=== PATIENT | female | born 1965 | race Caucasian/White ===

== ENCOUNTER → 2019-07-08 | Outpatient (CLI) | payer BC | LOC: COL.RAD 09:51 | DX: C20 Malignant neoplasm of rectum (principal); E27.8 Other specified disorders of adrenal gland; K80.20 Calculus of gallbladder without cholecystitis without obstruction; M79.89 Other specified soft tissue disorders | CPT/HCPCS: Q9967 ==

== ENCOUNTER 2020-01-04 23:04 | Emergency (ER) | payer BC ==
[~2020-01-04] VITALS: Ht 177.8 cm; Wt 104.5 kg
[2020-01-04 23:07] VITALS: BP 118/75; TEMP 97.6
[2020-01-04] MEDS ORDERED: MULTI VITAMINS1 TAB PO (23:13)
[2020-01-04 23:51] LABS: BASO # 0.1 (0.0-0.2); BASO % 0.4 % (0.0-2.0); EOS # 0.2 (0.0-0.7); EOS % 1.5 % (0-4.0); GRAN # 9.7 (1.4-6.5); GRAN % 85.8 % (42.2-75.2); HEMATOCRIT 46.4 % (37.0-47.0); HEMOGLOBIN 14.6 g/dl (12.5-16.0); LYMPH # 0.5 (1.2-3.4); LYMPH % 4.7 % (20.0-51.0); MEAN CELL VOLUME 84 fl (80.0-100.0); MEAN CORPUSCULAR HEMOGLOBIN 26 pg (27.0-31.0); MEAN CORPUSCULAR HGB CONC 32 g/dl (33.0-37.0); MONO # 0.8 (0.1-0.6); MONO % 7.2 % (1.7-9.3); PLATELET COUNT 160 K/mm3 (130-400); RED BLOOD COUNT 5.56 M/mm3 (4.10-5.30); REDCELL DISTRIBUTION WIDTH-CV 14.7 % (11.5-14.5)
[2020-01-04 23:59] LABS: ALBUMIN 4.4 gm/dL (3.5-5.0); BILIRUBIN,TOTAL 1.1 mg/dL (0.0-1.0); CREATININE, serum 0.86 (0.52-1.25); POTASSIUM 4.3 mmol/L (3.4-5.0); TOTAL PROTEIN 7.9 gm/dL (6.4-8.2)
[2020-01-05 01:00] LABS: COLLECTION METHOD CLEAN CATCH
[2020-01-05 01:10] LABS: MUCOUS Present /lpf; PH 5 (5-8); SQUAMOUS EPITHELIAL 0-2 /hpf; URINE APPEARANCE Hazy; URINE BACTERIA Moderate /hpf; URINE BILIRUBIN Negative (NEGATIVE); URINE BLOOD 2+ (NEGATIVE); URINE COLOR Amber; URINE GLUCOSE Negative (NEGATIVE); URINE KETONE Trace (NEGATIVE); URINE LEUKOCYTE ESTERASE 1+ (NEGATIVE); URINE NITRATE Negative (NEGATIVE); URINE PROTEIN(semi-quant) Negative (NEGATIVE); URINE UROBILINOGEN >=4.0 mg/dL (NEGATIVE)
[2020-01-05] MEDS ORDERED: FLAGYL500 MG PO ×3 (02:11→03:25)
[2020-01-05] MEDS ORDERED: PHENERGAN 25 TA25 MG PO ×3 (02:11→03:25)
[2020-01-05] MEDS ORDERED: CIPRO 500MG TA500 MG PO ×3 (02:11→03:25)
[2020-01-05 03:12] VITALS: PULSE 64
== END 2020-01-05 03:25 | disposition home or self-care (01) ==
LOC: COL.ER 23:04
PROVIDERS: Emergency Medicine
DX: K52.9 Noninfective gastroenteritis and colitis, unspecified (principal); N39.0 Urinary tract infection, site not specified; Z90.710 Acquired absence of both cervix and uterus; Z90.89 Acquired absence of other organs
CPT/HCPCS: J0744; J2405; J2550; J3010; J7120; Q9967